=== PATIENT | male | born 1980 | race Caucasian/White ===

== ENCOUNTER 2018-10-11 16:39 | Emergency (ER) | payer SELFPAY ==
[~2018-10-11] VITALS: Ht 182.9 cm; Wt 104.3 kg
[~2018-10-11 16:39] MED LIST: BACITRACIN3.5 GM OP; DEPAKOTE250 MG PO; KEFLEX500 MG ORAL; LIBRIUM25 MG ORAL; LIBRIUM5 MG ORAL; OXYCONTIN40 M1 ORAL; UNOBMED; XANAX0.25 MG ORAL
[2018-10-11 16:50] VITALS: BP 160/102
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
[2018-10-11] MEDS ORDERED: Ketorolac 30mg Inj IM ONE (17:00)
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
--- NOTE | 2018-10-11 17:38 | Diagnostic Imaging Report ---
EXAM: XR Left Hand, 2 Views CLINICAL HISTORY: PAIN TECHNIQUE: Frontal and lateral views of the left hand. COMPARISON: No relevant prior studies available. FINDINGS: Bones/joints: No acute displaced fracture or dislocation. Soft tissues: Unremarkable. No radiopaque foreign body. IMPRESSION: No acute displaced fracture or dislocation.
--- NOTE | 2018-10-11 17:39 | Diagnostic Imaging Report ---
EXAM: XR Left Elbow, 2 Views CLINICAL HISTORY: PAIN TECHNIQUE: Frontal and lateral views of the left elbow. COMPARISON: No relevant prior studies available. FINDINGS: Bones/joints: No acute displaced fracture or dislocation. Cannot evaluate for joint effusion due to suboptimal lateral view. Soft tissues: Unremarkable. IMPRESSION: No acute displaced fracture or dislocation.
--- NOTE | 2018-10-11 17:41 | Diagnostic Imaging Report ---
EXAM: XR Left Shoulder, 1 View CLINICAL HISTORY: PAIN TECHNIQUE: One view of the left shoulder. COMPARISON: No relevant prior studies available. FINDINGS: Bones/joints: Inferior humeral head dislocation. Possible fractures at the glenoid and humeral head greater tubercle. Soft tissues: Unremarkable. IMPRESSION: 1. Inferior humeral head dislocation. 2. Possible fractures at the glenoid and humeral head greater tubercle.
--- NOTE | 2018-10-11 18:00 | NUR ---
ED Nurse Note: received verbal order from ERMD to hold Dilaudid at this moment. will wait for the further order.
[2018-10-11] MEDS ORDERED: fentaNYL 100 mcg/2 mL IV ONE ×2 (18:30)
[2018-10-11 19:00] VITALS: BP 150/86
[2018-10-11] MEDS ORDERED: Lidocaine 1% 10mg/ml/Epi 0.005mg/ml 30ml vial INJ ONE ×2 (19:20→19:45)
[2018-10-11] MEDS ORDERED: Propofol 200mg/20ml IV ONE ×2 (19:22→19:45)
[2018-10-11] MEDS ORDERED: Lidocaine 1% Plain 30 ml INJ ONE (19:30)
[2018-10-11 19:45] VITALS: BP 107/56
--- NOTE | 2018-10-11 19:54 | NUR ---
HAND-OFF: Report given to MARYBEL Nelson.
[2018-10-11] MEDS ORDERED: HYDROcodone/Acetamin 10/325 tab ORAL ONE (20:00)
--- NOTE | 2018-10-11 20:00 | NUR ---
ED Nurse Note: pt is AA&ox4, gcs=15, speaking complete sentences, resp even and unlabored on RA after mod sedation, immobilizer in place in left shoulder, vss, airway intact. will cont monitor.
[2018-10-11] MEDS ORDERED: IBUPROFEN600 MG ORAL (20:11)
[2018-10-11 20:30] VITALS: BP 137/64
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
--- NOTE | 2018-10-11 20:30 | NUR ---
ED Nurse Note: AA&ox4, gcs=15.
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
[2018-10-12] MEDS ORDERED: WELLBUTRIN SR200 MG ORAL (04:42)
[2018-10-12] MEDS ORDERED: TYLENOL325 MG ORAL (05:07)
[2018-10-12] MEDS ORDERED: IBUPROFEN600 MG ORAL (05:07)
== END 2018-10-11 20:30 | disposition home or self-care (01) ==
LOC: EDBD 16:39 → EMR 17:00
DX: S43.035A Inferior dislocation of left humerus, initial encounter (principal); S42.142A Displaced fracture of glenoid cavity of scapula, left shoulder, initial encounter for closed fracture; Y04.2XXA Assault by strike against or bumped into by another person, initial encounter; Y93.9 Activity, unspecified; Y92.89 Other specified places as the place of occurrence of the external cause
CPT/HCPCS: 23655; 29105; 36556; 73020; 73030; 73070; 73120; 96372; 96374; 99284; J1885; J2001; J2704; J3010

== ENCOUNTER 2018-10-12 04:26 | Emergency (ER) | payer SELFPAY ==
[~2018-10-12] VITALS: Ht 182.9 cm; Wt 106.6 kg
[~2018-10-12 04:26] MED LIST changes: +IBUPROFEN600 MG ORAL
[2018-10-12] MEDS ORDERED: WELLBUTRIN SR200 MG ORAL (04:42)
--- NOTE | 2018-10-12 05:04 | Emergency Room Report ---
History of Present Illness General Chief Complaint: Upper Extremity Injury Source: Patient Present Illness HPI Patient was seen earlier today and had a dislocated shoulder. This was reduced. Apparently a central line needed to be established in order to provide procedural sedation. X-rays revealed fracture of the humeral greater tubercle and possibly glenoid head. The patient has not been taking any pain medication since that time and complains about severe pain there. Pain is rated 10/10, aching. Radiates to his neck and down his arm. There is no numbness. The patient admits to drinking several alcoholic beverages earlier. He states he relapsed from rehabilitation and has been kicked out. He's asking for Ativan at this time. In addition he states that he needs morphine. At the time of the initial visit apparently he was very difficult to care for. Allergies: Coded Allergies: No Known Allergies (Unverified , 11/17/14) VERIFIED Patient History Past Medical History: see triage record Social History: Reports: alcohol use, drug use; Denies: smoking Social History Narrative Recently in rehab Reviewed Nursing Documentation: PMH: Agreed; PSxH: Agreed Nursing Documentation-PMH Past Medical History: No History, Except For Hx Seizures: Yes Review of Systems Constitutional: Denies: fever Musculoskeletal: Reports: see HPI Skin: Denies: rash Psychiatric: Reports: see HPI Neurological: Reports: see HPI Physical Exam Vital Signs Date Time Temp Pulse Resp B/P (MAP) Pulse Ox O2 Delivery O2 Flow Rate FiO2 10/12/18 04:38 98.2 121 16 159/97 95 Room Air Sp02 EP Interpretation: reviewed, normal General Appearance: well appearing, no apparent distress, GCS 15, other - Alcohol on breath Head: normocephalic, atraumatic Eyes: bilateral eye PERRL, bilateral eye Scleral Injection ENT: hearing grossly normal, normal voice, moist mucus membranes Neck: full range of motion, supple Respiratory: no respiratory distress, speaking full sentences Musculoskeletal: gait/station normal, other - Shoulder immobilizer on left arm. His shoulder tenderness to palpation. There is also some swelling. Neurologic: alert, oriented x3, motor strength/tone normal, sensory intact, cerebellar normal, normal gait, other - Distal neurovascular exam is normal Psychiatric: anxious - Pressure Skin: no rash Medical Decision Making Diagnostic Impression: Primary Impression: Shoulder pain Qualified Codes: M25.512 - Pain in left shoulder Additional Impressions: Acute alcoholic intoxication Qualified Codes: F10.929 - Alcohol use, unspecified with intoxication, unspecified Shoulder fracture, left Qualified Codes: S42.92XD - Fracture of left shoulder girdle, part unspecified , subsequent encounter for fracture with routine healing ER Course Patient presents with left shoulder pain after reduction. Based on the physical exam he is still in the immobilizer and there is no dimpling or deformity of the shoulder at this time. Distal neurovascular is normal. Patient also been drinking. He'll be given a shot of Toradol and Tylenol. In addition he will be given a prescription for Motrin and Tylenol. No imaging studies are needed at this time. X-rays reviewed. Patient improved with analgesia. Patient was advised to follow-up with housing development specialist. Patient stable for outpatient observation and treatment. Last Vital Signs Date Time Temp Pulse Resp B/P (MAP) Pulse Ox O2 Delivery O2 Flow Rate FiO2 10/12/18 05:30 98.2 10/12/18 05:30 84 16 146/83 95 Room Air Status: improved Disposition: HOME, SELF-CARE Condition: Improved Scripts Acetaminophen (Tylenol) 325 Mg Tablet 650 MG ORAL Q6H PRN for Prn Pain/Headache/Temp > 101, #20 TAB 0 Refills Prov: Xander Carrasco MD 10/12/18 Ibuprofen* (MOTRIN*) 600 Mg Tablet 600 MG ORAL Q6H PRN for For Pain, #20 TAB Prov: Xander Carrasco MD 10/12/18 Xander Carrasco MD Oct 12, 2018 05:04
[2018-10-12] MEDS ORDERED: TYLENOL325 MG ORAL (05:07)
[2018-10-12] MEDS ORDERED: IBUPROFEN600 MG ORAL (05:07)
[2018-10-12] MEDS ORDERED: Ketorolac 60mg Inj IM ONE (05:15)
[2018-10-12 05:20] VITALS: BP 146/83
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
[2018-10-12 05:30] VITALS: BP 146/83
== END 2018-10-12 05:30 | disposition home or self-care (01) ==
LOC: EMR 05:06
DX: S42.92XD Fracture of left shoulder girdle, part unspecified, subsequent encounter for fracture with routine healing (principal); X58.XXXD Exposure to other specified factors, subsequent encounter; F10.120 Alcohol abuse with intoxication, uncomplicated
CPT/HCPCS: 96372; 99283

== ENCOUNTER 2019-05-31 12:10 | Emergency (ER) | payer BC ==
[~2019-05-31] VITALS: Ht 185.4 cm; Wt 99.8 kg
[~2019-05-31 12:10] MED LIST changes: +TYLENOL325 MG ORAL; +WELLBUTRIN SR200 MG ORAL
[2019-05-31] MEDS ORDERED: Ketorolac 30mg Inj IM ONE (12:45)
[2019-05-31 12:50] VITALS: BP 149/87
--- NOTE | 2019-05-31 12:50 | NUR ---
ELOPEMENT: Patient eloped after toradol injection, states that he does not want to stay, just wants the pain medicine and leave, Pilo Starks aware and notified of what patient stated.
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
--- NOTE | 2019-05-31 21:29 | Emergency Room Report ---
History of Present Illness General Chief Complaint: Pain Source: Patient Present Illness HPI 39-year-old male with history of alcohol intoxication here complaining of pain and swelling of her left third toe after getting an injury which she does not recall how he injured himself. Scant amount of swelling noted in the left third toe and tender to palpation. Upon arrival patient patient requests IV Ativan as he reports that he has a walker and he wants to detox. Patient has an active prescription for Klonopin and reports that he never received it from the pharmacy. Cures was done on patient patient in extensive cures history. Patient keeps blocking of the emergency room coming back requesting Ativan injection, he finally settled for an injection of Toradol however elopes before being given a prescription for antibiotics as the toe looks cellulitic and nonnarcotic pain medication. Denies all other symptoms, chest pain, shortness of breath, palpitation, abdominal pain. Patient denies suicidal homicidal ideations. Allergies: Coded Allergies: No Known Allergies (Unverified , 11/17/14) VERIFIED Patient History Past Medical History: see triage record Past Surgical History: unable to obtain Pertinent Family History: unable to obtain Social History: Reports: alcohol use Immunizations: UTD Reviewed Nursing Documentation: PMH: Agreed; PSxH: Agreed Nursing Documentation-PMH Hx Seizures: Yes Review of Systems All Other Systems: negative except mentioned in HPI Physical Exam Vital Signs Date Time Temp Pulse Resp B/P (MAP) Pulse Ox O2 Delivery O2 Flow Rate FiO2 05/31/19 12:23 98.2 120 18 163/99 (120) 93 Room Air Sp02 EP Interpretation: reviewed, normal General Appearance: no apparent distress, alert, GCS 15, non-toxic Head: normocephalic, atraumatic Eyes: bilateral eye normal inspection, bilateral eye PERRL ENT: hearing grossly normal, normal pharynx, no angioedema, normal voice Neck: full range of motion, supple, supple/symm/no masses Respiratory: chest non-tender, lungs clear, normal breath sounds, no rhonchi, no wheezing, speaking full sentences Cardiovascular #1: regular rate, rhythm, no edema, no murmur, normal capillary refill Cardiovascular #2: 2+ dorsalis pedis (R), 2+ dorsalis pedis (L) Gastrointestinal: normal bowel sounds, non tender, soft, non-distended, no guarding, no rebound Genitourinary: no CVA tenderness Musculoskeletal: back normal, normal range of motion, no calf tenderness, other - left third toe ttp and celluletic Neurologic: alert, oriented x3, responsive, motor strength/tone normal, sensory intact, speech normal Psychiatric: judgement/insight normal, memory normal, mood/affect normal, no suicidal/homicidal ideation Skin: no rash Lymphatic: no adenopathy Medical Decision Making PA Attestation All my diagnosis and treatment plans were reviewed ad discussed with my supervising physician Dr. Lane Diagnostic Impression: Primary Impression: Pain Additional Impressions: Eloped from emergency department Cellulitis, toe Drug-seeking behavior Toe contusion ER Course 39-year-old male with history of alcohol intoxication here complaining of pain and swelling of her left third toe after getting an injury which she does not recall how he injured himself. Scant amount of swelling noted in the left third toe and tender to palpation. Upon arrival patient patient requests IV Ativan as he reports that he has a walker and he wants to detox. Patient has an active prescription for Klonopin and reports that he never received it from the pharmacy. Cures was done on patient patient in extensive cures history. Patient keeps blocking of the emergency room coming back requesting Ativan injection, he finally settled for an injection of Toradol however elopes before being given a prescription for antibiotics as the toe looks cellulitic and nonnarcotic pain medication. Denies all other symptoms, chest pain, shortness of breath, palpitation, abdominal pain. Patient denies suicidal homicidal ideations. Ddx considered but are not limited to: foot fracture, foot sprain, foot contusion, foot strain Vital signs: are WNL, pt. is afebrile H&PE are most consistent with: Cellulitis of left toe, toe contusion, alcohol abuse, drug-seeking behavior ORDERS: foot Xray , Toradol ED INTERVENTIONS: Toradol Patient eloped after getting Toradol injection and did not receive any paperwork and prescription for antibiotics and pain medication Other X-Ray Diagnostic Results Other X-Ray Diagnostic Results : X-Ray ordered: left foot # of Views/Limited Vs Complete: 3 View Indication: Swelling EP Interpretation: Yes PA Xray: Interpretation reviewed, by supervising MD, and agrees with findings. Interpretation: no dislocation, no soft tissue swelling, no fractures, other - fx left third toe Impression: No acute disease Last Vital Signs Date Time Temp Pulse Resp B/P (MAP) Pulse Ox O2 Delivery O2 Flow Rate FiO2 05/31/19 12:50 98.2 18 149/87 95 Room Air 05/31/19 12:23 120 Disposition: ELOPED Condition: Stable Referrals: NON PHYSICIAN (PCP) Tereza Quezada May 31, 2019 21:29
== END 2019-05-31 13:00 | disposition left against medical advice (07) ==
LOC: EMR 12:55
DX: L03.032 Cellulitis of left toe (principal); S90.122A Contusion of left lesser toe(s) without damage to nail, initial encounter; Z76.5 Malingerer [conscious simulation]; X58.XXXA Exposure to other specified factors, initial encounter; Y92.9 Unspecified place or not applicable
CPT/HCPCS: 73630; 96372; 99283; J1885